=== PATIENT | female | born 1975 | race Caucasian/White ===

== ENCOUNTER 2022-08-28 07:12 | Day surgery (SDC) | payer OTHER, SELFPAY ==
[2022-08-23 08:46] VITALS: BMI 34.8
--- NOTE | 2022-08-27 10:29 | HO.ANESPROP2 ---
Documented by User: Karuna Majano NP 08/27/22 10:30 HPI - Anesthesia Eval Consult details Narrative: 47yo F for Colonoscopy PMFSH Past Medical History Medical History (Updated 08/23/22 @ 08:39 by Michaela Lyman RN) Elevated cholesterol Seasonal allergies Surgical History Surgical History (Updated 08/23/22 @ 08:39 by Michaela Lyman RN) History of back surgery Hx of section Hx of colonoscopy Social History Social History Patient Tobacco Use Status: Never used Tobacco Use of substances other than those prescribed or required for medical reasons: No Are you DNR?: No Advance Directives: No Advance Directives Information Provided: Yes Meds Allergies Allergy/AdvReac Type Severity Reaction Status Date / Time gluten Allergy Unknown Verified 08/23/22 08:39 Home Medications Medication Instructions Recorded Confirmed Last Taken Type Probiotic 08/23/22 Unknown History digestive enzymes 1 cap PO DAILY 08/23/22 08/23/22 Unknown History fexofenadine 180 mg tablet 180 mg PO DAILY 08/23/22 08/23/22 Unknown History (Madie Allergy) fiber 1 tab PO 08/23/22 Unknown History mometasone 50 mcg/actuation nasal 2 spray intranasal DAILY 08/23/22 08/23/22 Unknown History spray Exam Exam Date and Time: August 27, 2022 1029 Height,Weight and Vital Signs: Height 5 ft 6 in Weight 97.976 kg Assessment and Plan Assessment Anesthesia Assessment: Chart Reviewed Documented by User: Juan Aguilar MD 08/28/22 10:47 PMFSH Past Medical History Medical History (Updated 08/23/22 @ 08:39 by Michaela Lyman RN) Elevated cholesterol Seasonal allergies Family History Family history of problems with anesthesia: No Surgical History Surgical History (Updated 08/23/22 @ 08:39 by Michaela Lyman RN) History of back surgery Hx of section Hx of colonoscopy History of Problems with Anesthesia: No Social History Social History Patient Tobacco Use Status: Never used Tobacco Use of substances other than those prescribed or required for medical reasons: No Are you DNR?: No Advance Directives: No Advance Directives Information Provided: Yes Meds Allergies Allergy/AdvReac Type Severity Reaction Status Date / Time gluten Allergy Unknown Verified 08/23/22 08:39 Home Medications Medication Instructions Recorded Confirmed Last Taken Type Probiotic 08/23/22 Unknown History digestive enzymes 1 cap PO DAILY 08/23/22 08/23/22 Unknown History fexofenadine 180 mg tablet 180 mg PO DAILY 08/23/22 08/23/22 Unknown History (Madie Allergy) fiber 1 tab PO 08/23/22 Unknown History mometasone 50 mcg/actuation nasal 2 spray intranasal DAILY 08/23/22 08/23/22 Unknown History spray Exam Airway Mallampati Class: II TM Dist: >3cm Neck ROM: Full Loose/Missing/Broken Teeth: Yes Assessment and Plan Assessment Anesthesia Assessment: Anesthesia Plan Discussed Final Anesthetic Review Family History of Problems with Anesthesia: No History of Problems with Anesthesia: No NPO: Yes ASA Class: II Final Preanesthetic Review: No Changes in Pt Med Stat, Meds/Allgs Chart Reviewed, Consent Obtained/Reviewed and Anes Risks/Benef Reviewed Patient Risk: Low Procedure Risk: Low Anesthetic Plan Anesthetic Plan: MAC: Disposition: Standard PACU
[2022-08-28 07:24] VITALS: BMI 33.9
[2022-08-28 07:32] LABS: UPreg QC Valid YES; Urine Pregnancy NEGATIVE (NEGATIVE)
[2022-08-28 07:38] VITALS: BP 121/66; PULSE 89; RESP 16; TEMP 36.8; O2SAT 98
[2022-08-28] MEDS: Lactated Ringers 1,000 ML 100 ML IVCONT (07:46)
--- NOTE | 2022-08-28 08:28 | MHC.SHP ---
Pre-Procedural Eval Section A Date of Service: 08/28/22 The patient is an INPATIENT: No Changes since office visit: No Cold of Flu in the past 2 weeks, No New Medical Problems, No Changes in Medication and No Patient answered all questions The History & Physical has been completed within 30 days and I have reviewed it.: Yes Section B Chief Complaint: screening Allergies: Allergies Allergy/AdvReac Type Severity Reaction Status Date / Time gluten Allergy Unknown Verified 08/23/22 08:39 Plan I have reviewed the history and physical and performed a pertinent physical examination on my patient. No changes have occurred unless specified.
--- NOTE | 2022-08-28 08:58 | P.BOP_ITS ---
Brief Operative Note Date of Service: 08/28/22 Pre-op diagnosis: screening Post-op diagnosis: same Procedure: colonoscopy Surgeon: Jose Marx Anesthesia: MAC Was an Laboratory Apparatus Glass Blower used for this Procedure?: No Estimated blood loss (mL): 2 Pathology: other Condition: stable Disposition: PACU
[2022-08-28 09:00] VITALS: BP 109/60; PULSE 75; RESP 16; TEMP 36.1; O2SAT 98
[2022-08-28 09:15] VITALS: BP 117/60; PULSE 79; RESP 16; TEMP 36.1; O2SAT 99
--- NOTE | 2022-08-28 09:28 | OP_ITS ---
SURGEON: Jose Marx MD INDICATIONS: Prior history of adenomatous colon polyps. PREOPERATIVE DIAGNOSIS: POSTOPERATIVE DIAGNOSIS: PROCEDURE PERFORMED: Colonoscopy to the terminal ileum with biopsy and snare polypectomy. ESTIMATED BLOOD LOSS: COMPLICATIONS: ANESTHESIA: Monitored anesthesia care. ASSISTANTS: SPECIMENS: DESCRIPTION OF PROCEDURE: The procedure was performed on 08/28/2022. History and physical performed. The risks and benefits of the procedure were explained to the patient. Informed consent was obtained. The patient was placed in the left lateral decubitus position. A digital rectal exam was performed and was found to be normal. The Olympus pediatric video colonoscope was introduced into the rectum and advanced to the cecum without difficulty. The cecum was identified by transillumination, palpation, and identification of the ileocecal valve, examination was performed, and the scope was removed. She tolerated the procedure well and was taken to recovery area in stable condition. FINDINGS: The terminal ileum was normal. The visualized colonic mucosa was normal. There was a moderate amount of liquid stool and some chunks of solid material, which limited the sensitivity examination for detection of small polyps, this was washed and suctioned as best possible. Four polyps were identified. All were less than 10 mm, 2 were removed with biopsy forceps measuring approximately 3 mm. These were located in the cecum and right colon. A third polyp at the distal transverse colon was removed with a cold snare. It measured approximately 6 mm. The 4th polyp located at 60 cm was removed with a hot snare. This measured approximately 8 mm. No other polyps were identified. Retroflexed examination showed internal hemorrhoids that were moderate in size. IMPRESSION: Colon polyps. RECOMMENDATION: Follow up the biopsy results. MD UMA Salter/JONAHL / [id number]
== END 2022-08-28 09:41 | disposition home or self-care (01) ==
PROVIDERS: Nurse Practitioner; PCP Nurse Practitioner Family; Visit Provider Internal Medicine Gastroenterology
PROC: 0DJD8ZZ Inspection of Lower Intestinal Tract, Via Natural or Artificial Opening Endoscopic (ICD-10-PCS; CPT 45378; principal; 2022-08-28 08:10)
DX: Z12.11 Encounter for screening for malignant neoplasm of colon (principal); Z86.010 Personal history of colon polyps; D12.0 Benign neoplasm of cecum; D12.2 Benign neoplasm of ascending colon; K63.5 Polyp of colon; K64.8 Other hemorrhoids; K58.9 Irritable bowel syndrome, unspecified; E78.00 Pure hypercholesterolemia, unspecified; J30.2 Other seasonal allergic rhinitis; Z79.899 Other long term (current) drug therapy
CPT/HCPCS: 45385; 45380; 81025; 88305

== ENCOUNTER 2025-03-10 13:40 | Observation (INO) | payer BC, SELFPAY ==
--- NOTE | ~2025-03-10 | CT_ITS ---
CLINICAL HISTORY: RLQ abd pain, question appy CT ABDOMEN AND PELVIS WITH CONTRAST Comparison: None Findings: Mild atelectasis in the bilateral lower lobes. No consolidation or pleural effusion. The gallbladder and solid organs are within normal limits. No renal stones. No AAA. No lymphadenopathy. No bowel obstruction, pneumoperitoneum, or pneumatosis. No ascites. No significant mesenteric or paracolic edema. Moderate colonic stool burden. Small fat containing umbilical hernia. The appendix is elongated measuring 6-7 mm with mild adjacent fat stranding. No free or loculated fluid collection. CT appearance of the uterus and ovaries unremarkable. Urinary bladder unremarkable. No acute fracture. Moderately severe disc space narrowing with endplate osteophytes at L5-S1. Combined with a suspected disc herniation and facet arthrosis results in at least moderate spinal stenosis. IMPRESSION: 1. Findings are suggestive of mild/early acute appendicitis. No perforation or abscess. 2. Otherwise, no obstructive or acute inflammatory changes in the gastrointestinal and genitourinary tracts. 3. No urolithiasis. This document has been electronically signed by: Janee Barker DO on 03/10/2025 17:39:05
[2025-03-10 13:44] VITALS: BP 150/81; PULSE 84; RESP 18; TEMP 36.9; O2SAT 98; BMI 35.3
--- NOTE | 2025-03-10 13:44 | ED_ITS ---
HPI - General Adult General Chief complaint: Abdominal Pain Stated complaint: right side abd pain was sent from Time Seen by Provider: 03/10/25 16:12 Source: patient Mode of arrival: ambulatory Limitations: no limitations History of Present Illness ED Provider: Brad Rivero DO HPI narrative: 50-year-old female with no significant past medical or surgical history presents to the ED for 2 days of right lower quadrant abdominal pain that does not radiate and is described as sharp. The 1st episode occurred yesterday in the late morning, resolved, was not worsened with eating and the 2nd episode started earlier today and has been constant, worse with movement such as jumping up and down. She denies severe nausea, vomiting, diarrhea, constipation, fevers or chills. She has no abdominal surgeries in the past. She has never experienced this pain before. Related Data Home Medications ?Medication ?Instructions ?Recorded ?Confirmed Probiotic 08/23/22 digestive enzymes 1 cap PO DAILY 08/23/22 08/23/22 fexofenadine 180 mg tablet 180 mg PO DAILY 08/23/22 08/23/22 (Madie Allergy) fiber 1 tab PO 08/23/22 mometasone 50 mcg/actuation nasal 2 spray intranasal DAILY 08/23/22 08/23/22 spray Allergies Allergy/AdvReac Type Severity Reaction Status Date / Time gluten Allergy Unknown Verified 03/10/25 13:44 Review of Systems 2 Review of Systems: Yes all other systems are reviewed and are negative [facility] Past Medical History Medical History (Updated 03/10/25 @ 18:08 by Brad Rivero DO) Seasonal allergies Elevated cholesterol Surgical History (Updated 08/23/22 @ 08:39 by Michaela Lyman RN) History of back surgery Hx of section Hx of colonoscopy Social History Social History Patient Tobacco Use Status: Never used Tobacco Advance Directives: No Advance Directives Information Provided: Yes Physical Exam ED Vital Signs: Vital Signs - 24 hr 03/10/25 13:44 03/10/25 16:00 Temperature 98.4 F 97.8 F Pulse Rate 84 87 Respiratory Rate 18 18 Blood Pressure 150/81 H 146/81 H Pulse Oximetry 98 98 Oxygen Delivery Method Room Air Room Air BMI result Body Mass Index 35.3 Constitutional: ?Alert, oriented, speaking in full sentences HEENT: ?Normocephalic, atraumatic. ?Moist mucous membranes Eyes: ?PERRL, EOMI Neck: ?Supple, nontender Chest: ?No chest wall tenderness Respiratory: ?Lungs clear to auscultation, no increased work of breathing Cardio: ?Regular rate and rhythm, no murmur GI: ?Soft, nondistended, right lower quadrant tenderness with positive McBurney's point tenderness. No Rovsing sign. Back: ?Normal range of motion, nontender Skin: ?No rash, no lesions Neuro: ?Alert and oriented to person, place and time, moves all 4 extremities, no focal deficits Extremities: ?No swelling or tenderness, full range of motion Psych: ?Calm, alert and cooperative, appropriate behavior Course Course Course Narrative: RME, this is a rapid medical exam performed by Jarvis Spangler please refer to primary provider for complete H&P- 50-year-old female presents for evaluation of a 2 day history of right lower abdominal pain. She was sent here from urgent care for rule out appendicitis due to right lower quadrant tenderness on exam. She was not by urine dipstick and she had leukocytes in the urine but no urinary symptoms. Plan for labs. Will defer advanced imaging until the patient gets a room Medications Administered Discontinued Medications Generic Name Dose Route Start Last Admin Trade Name Freq PRN Reason Stop Dose Admin Iohexol 100 ml 03/10/25 16:57 03/10/25 16:57 Iohexol 350 Mg/Ml 100 Ml Infus..Btl IV 03/10/25 16:58 100 ml ONCE ONE Administration Ketorolac Tromethamine 15 mg 03/10/25 16:43 03/10/25 17:09 Ketorolac Tromethamine 15 Mg/Ml Vial IVPUSH 03/10/25 16:44 15 mg ONCE ONE Administration Ondansetron HCl 4 mg 03/10/25 16:43 03/10/25 17:09 Ondansetron Hcl 4 Mg/2 Ml Vial IVPUSH 03/10/25 16:44 4 mg ONCE ONE Administration Medical Decision Making Medical Decision Making MDM Narrative: 50-year-old female presenting with right lower quadrant abdominal pain. Signs and symptoms not consistent with ovarian torsion. Labs show no leukocytosis, equivocal urinalysis with the patient does not have any urinary symptoms consistent with cystitis. There is high suspicion for appendicitis which was ruled out with CT imaging. The patient was provided ketorolac and ondansetron for pain and nausea with some improvement. She does not want opiate therapy at this time. Case discussed with general surgeon who will evaluate and admit the patient. Started the patient on IV Zosyn. Lab Data 03/10/25 14:05 03/10/25 14:05 Labs: Lab Results 03/10/25 Range/Units 14:05 WBC 7.6 (4.8-10.8) X10*3/uL RBC 4.73 (4.20-5.50) X10*6/uL Hgb 13.4 (12.0-16.0) g/dl Hct 40.8 (37.0-47.0) % MCV 86.3 (80.0-98.0) fL MCH 28.3 (27.0-33.0) pg MCHC 32.8 (31.0-35.0) g/dl RDW 13.6 (11.0-16.0) % Plt Count 346 (160-400) X10*3/uL MPV 9.3 L (9.4-12.3) fL Immature Gran % (Auto) 0.8 H (0.0-0.4) % Neut % (Auto) 61.3 (45-73) % Lymph % (Auto) 26.9 (20-40) % Bell % (Auto) 6.7 (2-11) % Eos % (Auto) 3.8 (0-4) % Baso % (Auto) 0.5 (0-2) % Lymph # (Auto) 2.0 (1.2-4.9) X10*3/uL Bell # (Auto) 0.5 (0.1-1.2) X10*3/uL Eos # (Auto) 0.3 (0.0-0.4) X10*3/uL Baso # (Auto) 0.0 (0.0-0.2) X10*3/uL Abs Immat Gran (auto) 0.06 H (0.00-0.03) X10*3/uL Absolute Neuts (auto) 4.6 (2.0-8.3) x10*3/uL Absolute Nucleated RBC 0.000 (0.0-0.012) X10*3/uL Nucleated RBC % (auto) 0.0 (0.0-0.2) /100WBC Sodium 139 (135-145) mmol/L Potassium 3.9 (3.3-5.1) mmol/L Chloride 109 H (96-108) mmol/L Carbon Dioxide 25 (22-29) mmol/L Anion Gap 9 L (12-20) BUN 12 (9-16) mg/dL Creatinine 0.70 (0.5-1.4) mg/dL Estim Creat Clear Calc 114.2 Estimated GFR > 60 Random Glucose 98 (60-115) mg/dL Calcium 9.5 (8.4-10.2) mg/dL Total Bilirubin 0.7 (0.0-1.0) mg/dL AST 19 (5-31) U/L ALT 17 (0-31) U/L Alkaline Phosphatase 85 (39-117) U/L Total Protein 7.8 (6.5-8.0) g/dL Albumin 4.3 (3.5-5.0) g/dL Lipase 70 (8-78) U/L Beta HCG, Quant < 2 mIU/mL Urine Color Yellow Urine Appearance Clear Urine pH 5.5 (5.0-9.0) Ur Specific [place] 1.010 (1.005-1.025) Urine Protein Negative (Neg-Trace) mg/dL Urine Glucose (UA) Negative (Negative) mg/dL Urine Ketones Negative (Negative) mg/dL Urine Blood Trace H (Negative) Urine Nitrite Negative (Negative) Ur Leukocyte Esterase Small (1+) H (Negative) Urine RBC 3-5 H (0-2) /HPF Urine WBC 6-10 H (0-5) /HPF Ur Squamous Epith Cells 6-10 (0-2) /HPF Urine Bacteria Trace (None Seen) Hyaline Casts 0-2 (0-2) /LPF Discharge Plan Discharge Clinical Impression: Acute appendicitis Patient Disposition: Admitted As Inpatient Prescriptions: No Action digestive enzymes Capsule 1 cap PO DAILY Rx Instructions: administer with food; swallow whole; do not crush/chew/dissolve/break/cut fexofenadine [Madie Allergy] 180 mg Tablet 180 mg PO DAILY mometasone [Nasonex] 50 mcg/actuation [place],Non-Aerosol 2 spray INTRANASAL DAILY Rx Instructions: administer into each nostril Fiber Choice Tablet,Chewable 1 tab PO Probiotic Print Language: Tongan
[2025-03-10 14:13] LABS: MANUAL DIFF FLAG NO
[2025-03-10 14:15] LABS: Appearance Urine Clear; Color Urine Yellow; Glucose Urine UA Negative (Negative); Leukocyte Esterase Urine Small (1+) (Negative); Nitrite Urine Negative (Negative); PH 5.5 (5.0-9.0); UMIC TRIGGER UACC YES; Urine Blood Trace (Negative); Urine Ketones Negative (Negative); Urine Protein Negative (Neg-Trace)
[2025-03-10 14:18] LABS: Bacteria Urine Trace (None Seen); Basophils Percent Auto 0.5 % (0-2); Eosinophils Absolute Auto 0.3 X10*3/uL (0.0-0.4); Eosinophils Percent Auto 3.8 % (0-4); Hematocrit 40.8 % (37.0-47.0); Hemoglobin 13.4 g/dl (12.0-16.0); Hyaline Casts Urine 0-2 /LPF (0-2); Imm Gran Abs Auto 0.06 X10*3/uL (0.00-0.03); Imm Gran Pct Auto 0.8 % (0.0-0.4); Lymphocytes Percent Auto 26.9 % (20-40); Mean Corpuscular HGB Conc 32.8 g/dl (31.0-35.0); Mean Corpuscular Hemoglobin 28.3 pg (27.0-33.0); Mean Corpuscular Volume 86.3 fL (80.0-98.0); Mean Platelet Volume 9.3 fL (9.4-12.3); Monocytes Absolute Auto 0.5 X10*3/uL (0.1-1.2); Monocytes Percent Auto 6.7 % (2-11); Neutrophils Absolute Auto 4.6 x10*3/uL (2.0-8.3); Neutrophils Percent Auto 61.3 % (45-73); Platelet Count 346 X10*3/uL (160-400); Red Blood Count 4.73 X10*6/uL (4.20-5.50); Red Cell Distribution Width 13.6 % (11.0-16.0); UACC Culture Trigger YES; White Blood Count 7.6 X10*3/uL (4.8-10.8)
[2025-03-10 14:31] LABS: Alanine Aminotransferase 17 U/L (0-31); Albumin Level 4.3 g/dL (3.5-5.0); Alkaline Phosphatase 85 U/L (39-117); Anion Gap 9 (12-20); Aspartate Amino Transferase 19 U/L (5-31); Bilirubin Total 0.7 mg/dL (0.0-1.0); Blood Urea Nitrogen 12 mg/dL (9-16); Calcium 9.5 mg/dL (8.4-10.2); Carbon Dioxide 25 mmol/L (22-29); Chloride 109 mmol/L (96-108); Creatinine Clr Calc Pharmacy 114.2; Estimated Glomerular Filt Rate > 60; Glucose Random 98 mg/dL (60-115); Lipase 70 U/L (8-78); Potassium 3.9 mmol/L (3.3-5.1); Sodium 139 mmol/L (135-145); Total Protein 7.8 g/dL (6.5-8.0)
[2025-03-10 14:36] LABS: HCG Quantitative < 2 mIU/mL
[2025-03-10 16:00] VITALS: BP 146/81; PULSE 87; RESP 18; TEMP 36.6; O2SAT 98
[2025-03-10] MEDS: iohexoL 350 MG/ML 100 ML INFUS..BTL IV (16:57)
[2025-03-10] MEDS: Ketorolac Tromethamine 15 MG/ML VIAL IVPUSH (17:09)
[2025-03-10] MEDS: ondansetron HCL 4 MG/2 ML VIAL IVPUSH (17:09)
--- OUTSIDE RECORDS SUMMARY | 2025-03-10 17:28 | XMS_ITS | Data Portability ---
Author Organization [facility], [address] Address [address] [place] [address] Assessment No assessment recorded. Plan of Treatment Reminders Order Date Submit Date Provider Last Modified By Organization Details Last Modified Time Details Appointments None recorded. Lab urinalysis, dipstick 2023 024 [email or web address] 20999_[facility], [address] [place] [address], [id number], 4 09:42:41 O&P (ova & parasites), stool 2023 024 [facility] [address] [place], [address], 4 14:06:17 gastrointes tinal pathogens panel, culture, stool 2023 024 [facility] [address] [place], [address], 4 10:06:58 C diff toxin A+B, qual IA, stool 2023 024 [facility] [address] [place], [address], 4 18:05:58 Referral None recorded. Procedures None recorded. Surgeries None recorded. Imaging None recorded. Medication Orders None recorded. Patient TargetsNo targets recorded. Patient Instructions Encounter Date Encounter Id Patient Instructions Last Modified By Organization Details Last Modified Time 05/31/2024 [id number] diarrhea: care instructions [email or web address] Not available 05/31/2024 09:42:34 specimen collection & handling* [email or web address] Not available 05/31/2024 12:01:52 Take 1 OTC Immodium after each loose bowel movement. No more than 4 tablets a day. Not available 05/31/2024 08:44:51 Reason for Referral None Reported. Results Created Date Observation Date Name Description Value Unit Range Abnormal Flag Note LastModifiedBy Organization Detail LastModifiedTime 02/29/20 24 06/01/2024 NO SPECI MEN RECEI VIRIGNIA no specimen received TNP Test not perfo rmed. No stool speci men recei [place]. Not Available [facility] ([facility]) [address] [place], [address], 06/01/2024 18:05:43 02/29/20 24 06/02/2024 C DIFFI CILE TOXIN S A+B, EIA C difficile toxins A+B, EIA TNP Test not perfo rmed. No stool speci men recei [place]. Not Available [facility] ([facility]) [address] [place], [address], 06/02/2024 18:05:58 02/29/20 24 06/02/[address] PROBL EM request problem TNP Test not perfo rmed. No stool speci men recei [place]. TEST: [id number] C diffi cile Toxin s A+B, EIA Not Available [facility] ([facility]) [address] [place], [address], 06/02/2024 18:05:58 02/29/20 24 06/03/2024 STOOL CULTU RE E coli shiga toxin EIA NEGATI VE negati ve Not Available [facility] ([facility]) [address] [place], [address], 06/05/2024 08:05:50 02/29/20 24 06/04/2024 STOOL CULTU RE salmonella/s higella screen FINAL REPORT Not Available [facility] ([facility]) [address] [place], [address], 06/05/2024 08:05:50 02/29/20 24 06/04/2024 STOOL CULTU RE result 1 COMMEN T No Salmo moira or Shige lla recov ered. Not Available [facility] ([facility]) [address] [facility], [place], [address], 06/05/2024 08:05:50 02/29/20 24 06/05/2024 STOOL CULTU RE campylobacte r culture FINAL REPORT Not Available [facility] ([facility]) [address] [facility], [place], [address], 06/05/2024 08:05:50 02/29/20 24 06/05/2024 STOOL CULTU RE result 1 COMMEN T No Campy lobac ter speci es isola alexia. Not Available [facility] ([facility]) [address] [facility], [place], [address], 06/05/2024 08:05:50 02/29/20 24 06/05/2024 OVA + VENKATA ITE EXAM ova + parasite exam FINAL REPORT These resul ts were obtai montserrat using wet prepa ratio n(s) and trich huong stain ed smear . This test does not inclu de testi ng for Crypt ospor idium parvu m, Cyclo spora , or Micro spori davey. Not Available [facility] ([facility]) [address] [facility], [place], [address], 06/05/2024 14:06:17 02/29/20 24 06/05/2024 OVA + VENKATA ITE EXAM result 1 COMMEN T No ova, cysts , or venkata ites seen. One negat ilene speci men does not rule out the possi bilit y of a venkata itic infec tion. Not Available [facility] ([facility]) [address] [place], [address], 06/05/2024 14:06:17 05/31/20 24 05/31/2024 speci men colle ction & handl ing* Completed? Succes sfully Not Available jil palacios [address] [place], [address], 05/31/2024 09:42:19 05/31/20 24 05/31/2024 urina lysis , dipst ick Unknown Analyte Normal = light yellow Not Available [facility] [address] [place], [address], 05/31/2024 08:54:18 05/31/20 24 05/31/2024 urina lysis , dipst ick Unknown Analyte Normal = clear Not Available [facility] [address] [place], [address], 05/31/2024 08:54:18 05/31/20 24 05/31/2024 urina lysis , dipst ick Unknown Analyte Normal = negati ve Not Available [facility] [address] [place], [address], 05/31/2024 08:54:18 05/31/2005/31/2024 urina lysis , dipst ick Unknown Analyte Normal = Negati ve Not Available [facility] [address] [place], [address], 05/31/2024 08:54:18 05/31/2005/31/2024 urina lysis , dipst ick Unknown Analyte Normal = Negati ve Not Available [facility] [address] [place], [address], 05/31/2024 08:54:18 05/31/20 24 05/31/2024 urina lysis , dipst ick Unknown Analyte Normal = 1.010, 1.015, 1.020 Not Available [facility] [address] [place], [address], 05/31/2024 08:54:18 05/31/20 24 05/31/2024 urina lysis , dipst ick Unknown Analyte Normal = Negati ve Not Available [address]il [address] [place], [address], 05/31/2024 08:54:18 05/31/20 24 05/31/2024 urina lysis , dipst ick Unknown Analyte Normal = 6.5, 7.0, 7.5, 8.0 Not Available [facility] [address], [address], 05/31/2024 08:54:18 05/31/20 24 05/31/2024 urina lysis , dipst ick Unknown Analyte Normal = Negati ve Not Available [facility] [address] [place], [address], 05/31/2024 08:54:18 05/31/20 24 05/31/2024 urina lysis , dipst ick Unknown Analyte Normal = 0.2, 1.0 Not Available [facility] [address] [place], [address], 05/31/2024 08:54:18 05/31/20 24 05/31/2024 urina lysis , dipst ick Unknown Analyte Normal = Negati ve Not Available [facility] [address] [place], [address], 05/31/2024 08:54:18 05/31/20 24 05/31/2024 urina lysis , dipst ick Unknown Analyte Normal = Negati ve Not Available [facility] [address] [place], [address], 05/31/2024 08:54:18 05/31/20 24 05/31/2024 urina lysis , dipst ick Unknown Analyte Light Yellow Not Available [facility] [address] [place], [address], 05/31/2024 08:54:18 05/31/20 24 05/31/2024 urina lysis , dipst ick Unknown Analyte Slight ly Cloudy Not Available [facility] [address] [place], [address], 05/31/2024 08:54:18 05/31/20 24 05/31/2024 urina lysis , dipst ick Unknown Analyte Negati ve Not Available [facility] [address] [place], [address], 05/31/2024 08:54:18 05/31/20 24 05/31/2024 urina lysis , dipst ick Unknown Analyte Negati ve Not Available [facility] [address] [place], [address], 05/31/2024 08:54:18 05/31/20 24 05/31/2024 urina lysis , dipst ick Unknown Analyte Negati ve Not Available [facility] [address] [place], [address], 05/31/2024 08:54:18 05/31/20 24 05/31/2024 urina lysis , dipst ick Unknown Analyte 1.010 Not Available [place] [place], [address], 05/31/2024 08:54:18 05/31/20 24 05/31/2024 urina lysis , dipst ick Unknown Analyte Modera te Not Available jil palacios [address] [place], [address], 05/31/2024 08:54:18 05/31/20 24 05/31/2024 urina lysis , dipst ick Unknown Analyte 6.0 Not Available _ dereck [address] [place], [address], 05/31/2024 08:54:18 05/31/20 24 05/31/2024 urina lysis , dipst ick Unknown Analyte Negati ve Not Available _jil pal[facility] [address] [place], [address], 05/31/2024 08:54:18 05/31/20 24 05/31/2024 urina lysis , dipst ick Unknown Analyte 0.2 E.U./d L Not Available _jil [facility] [address] [place], [address], 05/31/2024 08:54:18 05/31/20 24 05/31/2024 urina lysis , dipst ick Unknown Analyte Negati ve Not Available _[facility]il [address] [place], [address], 05/31/2024 08:54:18 05/31/20 24 05/31/2024 urina lysis , dipst ick Unknown Analyte Negati ve Not Available jil [address] [place], [address], 05/31/2024 08:54:18 Result Notes None recorded. Problems Name Problem SNOMED Code Status Onset Date Resolution Date Notes Provider Name and Address Organization Details Recorded Time Decreased thickness 71684144 Active 2023 pre diabvetic ; diarrhea x 8 days Elo Bricault null, [place] - [facility] 4 08:52:02 Allergic rhinitis 82839505 Active 2023 Elo Bricault null, [place] - [facility] 08:51:30 Problem Notes None recorded. Medical Equipment None Reported. Allergies No known drug allergies Medications Name Sig Start Date Stop Date Status Note LastModified by Organization Details LastModified Time celecoxib 200 mg capsule 05/31 completed Not Available Not Available Not Available azithromycin 250 mg tablet 05/31 completed Not Available Not Available Not Available minoxidil 2.5 mg tablet active Not Available Not Available No t Available clindamycin 1 % topical gel 05/31 completed Not Available Not Available Not Available prednisone 50 mg tablet 05/31 completed Not Available Not Available Not Available Zyrtec 10 mg capsule Take by oral route. active Not Available Not Available No t Available Vitals Date Recorded Body height Body mass index (BMI) Body weight Pain severity - 0-10 verbal numeric rating [Score] - Reported Respiratory rate Body temperature Oxygen saturation Oxygen saturation in Arterial blood by Pulse oximetry Heart rate Systolic blood pressure Diastolic blood pressure Provider Name and Address Organization Details Last Updated DateTime 167.64 cm 33.9 kg/m2 46927.4 g 3 17 /min 97.5 [degF] 99 % 99 % 85 /min 137 mm[Hg] 84 mm[Hg] Elo Vieira [facility] 08:56:31 Social History Question Answer Notes LastModified by [employer] ion Details LastModified Time Tobacco Smoking Status Never Smoker Elo gilmore [facility] 05/31/2024 08:52:57 What Is Your Level Of Alcohol Consumption? Occasional Information not available 05/31/2024 How Many Times Per Week Do You Consume Alcohol? Less Than 1 Time Per Week Information not available 05/31/2024 Are You Currently Employed? Yes Information not available 05/31/2024 Have You Had A Flu Shot This Season? Yes Information not available 05/31/2024 If No, Would You Like A Flu Shot Today? No Information not available 05/31/2024 Have You Had Direct Contact, Or Contact During Intimacy, With Monkeypox Rash, Scabs, Or Body Fluids From A Person With Monkeypox? No Information not available 05/31/2024 Do You Use Any Illicit Or Recreational Drugs? No Information not available 05/31/2024 Have You Recently Traveled Abroad? No Information not available 05/31/2024 Are You Currently In School? No Information not available 05/31/2024 Do You Or Have You Ever Used Any Other Forms Of Tobacco Or Nicotine? No Information not available 05/31/2024 Sex: Unknown Functional Status None recorded. Mental Status None recorded. Family History Relationship Description Onset Age of this Age Resolved Age Notes LastModified by Organization Details LastModified Time Father No current problems or disability Not available 05/04 08:52:04 Mother No current problems or disability Not available 05/04 08:52:04 Medical History No medical history recorded. Gynecological History Statement/Question Response Date of LMP 05/24/2024 Is there any chance of ? No LMP Approximate Obstetrics History GPAL:G 0 P 0 0 0 0 Past Encounters Encounter ID Performer Location Encounter Start Date Encounter Closed Date Diagnosis/Indication Diagnosis SNOMED-CT Code Diagnosis ICD10 Code Diagnosis Note [id number] [address] [place] [address] 01/20/2021 10:40:36 01/20/2021 11:53:24 [id number] GIANNI Smith [address] [place] [address] 05/31/2024 08:22:53 05/31/2024 09:56:05 Diarrhea 21952900 R19.7 Health Concerns Section Related Observation LastModified by Organization Detai ls LastModified Time None Recorded Concern Status LastModified by Organization Details LastModified Time None Recorded Advance Directives Directive None Recorded Payers Encounter Date Sequence Insurance Name Policy Number Policy Bradley Covered Member ID Bradley Member ID Guarantor Name 01/20/[address] [place] [address] [id number] Mary Byrd [id number] Mary Byrd 05/31/2024 1 [facility] [place] [place] [id number] Mary Byrd [id number] Mary Byrd Notes Date Note Type Note Provider Name and Address Organization Details Recorded Time 05/31/20 24 text/htm l Diarrhea UCReported bypatient.source of patient informationInformation obtained from patient; Patient arrived at Urgent Care ambulatory Quality:frequent;watery;lo ose; multiple times per day including middle of the night Severity:moderate Duration:present for 1 week (8 days total now) Onset/Timin-3 times a day;worse with meals;nocturnal diarrhea Context:no one else with similar symptoms; no recent camping; no recent picnic; no possible food sources; no recent antibiotics (30 days); no recent travel Aggravating Factors:eating Associated Symptoms:abdominal pain;blood in stool(mild bright red blood) GIANNI Kellogg [address] [place], [place] [address]Esteban Garciatobrooks [place], [address], [place] - [facility] 05/31/2024 09:51:07 OBGyn Episode No OBEpisode recorded.
[2025-03-10] MEDS: Dextrose 5 % and Lactated Ring 1,000 ML 125 ML IVCONT (18:25)
[2025-03-10] MEDS: Piperacillin Sodium/Tazobactam 3.375 GM in 0.9 % Sodium Chloride 50 ML IV (18:25)
--- NOTE | 2025-03-10 19:12 | PC.NURSE ---
Patient complains of RLQ pain 02/08, patient ,medicated with Tylenol IV per JAN.
[2025-03-10] MEDS: Acetaminophen 1,000 MG/100 ML PIGGYBACK 400 MG IV (19:13)
[2025-03-10 20:47] VITALS: BMI 36.3
[2025-03-10 20:49] VITALS: BP 148/76; PULSE 88; RESP 18; TEMP 36.2; O2SAT 97
--- NOTE | 2025-03-10 21:05 | PHA.MEDREC ---
Pharmacy Consult ? Medication Reconciliation Pharmacy has completed the medication reconciliation. Spoke to patient to confirm medication list. Last dose of medication was today 03/10/25.
[2025-03-11] VITALS (10 sets, daily range): BP systolic 109–141; BP diastolic 57–83; PULSE 78–91; RESP 12–18; TEMP 36.1–36.7; O2SAT 93–98
[2025-03-11] MEDS: Zolpidem Tartrate 5 MG TABLET PO (00:09)
[2025-03-11] MEDS: Piperacillin Sodium/Tazobactam 3.375 GM in 0.9 % Sodium Chloride 50 ML IV ×3 (00:15→12:28)
[2025-03-11] MEDS: Dextrose 5 % and Lactated Ring 1,000 ML 125 ML IVCONT ×2 (03:05→11:34)
[2025-03-11 06:30] LABS: MANUAL DIFF FLAG NO
[2025-03-11 06:33] LABS: Basophils Absolute Auto 0.1 X10*3/uL (0.0-0.2); Basophils Percent Auto 1.1 % (0-2); Eosinophils Absolute Auto 0.3 X10*3/uL (0.0-0.4); Eosinophils Percent Auto 5.6 % (0-4); Hematocrit 37.6 % (37.0-47.0); Hemoglobin 12.4 g/dl (12.0-16.0); Imm Gran Abs Auto 0.04 X10*3/uL (0.00-0.03); Imm Gran Pct Auto 0.7 % (0.0-0.4); Lymphocytes Absolute Auto 1.7 X10*3/uL (1.2-4.9); Lymphocytes Percent Auto 31.8 % (20-40); Mean Corpuscular Hemoglobin 28.9 pg (27.0-33.0); Mean Corpuscular Volume 87.6 fL (80.0-98.0); Mean Platelet Volume 9.6 fL (9.4-12.3); Monocytes Absolute Auto 0.5 X10*3/uL (0.1-1.2); Monocytes Percent Auto 8.4 % (2-11); Neutrophils Absolute Auto 2.8 x10*3/uL (2.0-8.3); Neutrophils Percent Auto 52.4 % (45-73); Platelet Count 269 X10*3/uL (160-400); Red Blood Count 4.29 X10*6/uL (4.20-5.50); Red Cell Distribution Width 13.8 % (11.0-16.0); White Blood Count 5.4 X10*3/uL (4.8-10.8)
[2025-03-11] MEDS: 0.9 % Sodium Chloride Flush 3 ML SYRINGE IVFLUSH ×2 (07:24→20:21)
[2025-03-11] MEDS: ondansetron HCL 4 MG/2 ML VIAL IVPUSH ×2 (07:28→14:28)
--- NOTE | 2025-03-11 08:05 | P.HPGS_ITS ---
History of Present Illness History of Present Illness Date of Service: 03/11/25 Chief complaint: Early acute appendicitis Narrative: Mary Byrd is a 50 year old female presenting with complaints of abdominal pain in the right lower quadrant which began 1 day prior to admission. She denies a previous history of similar pain. The pain was approximately 3-4 in severity but increased to 6 with motion. She denies fever/chills, nausea/vomiting, diarrhea or constipation. The pain began to increase in severity therefore she presented to the emergency department for further evaluation. Workup in the emergency department revealed a normal WBC however CT abdomen and pelvis revealed inflammatory changes around the appendix with no fluid collections or air to indicate perforation. Findings were felt to be consistent with early appendicitis. This morning she continues to have abdominal pain in the right lower quadrant and pain with motion. Review of Systems Review of Systems: Yes all other systems are reviewed and are negative Gastrointestinal: Gastrointestinal: Reports abdominal pain, Denies constipation, Denies diarrhea, Denies nausea and Denies vomiting PMFSH Past Medical History Medical History (Updated 03/11/25 @ 08:08 by Gavin Pereyra MD) Seasonal allergies Elevated cholesterol Surgical History Surgical History (Updated 08/23/22 @ 08:39 by Michaela Lyman RN) History of back surgery Hx of section Hx of colonoscopy Social History Social History Patient Tobacco Use Status: Never used Tobacco Advance Directives: No Advance Directives Information Provided: Yes Meds Allergies Allergy/AdvReac Type Severity Reaction Status Date / Time gluten Allergy Unknown Verified 03/10/25 20:57 Active Medications: Current Medications Hydromorphone HCl (Hydromorphone Hcl 0.5 Mg/0.5 Ml Syringe) 0.5 mg IVPUSH Q3H PRN; Protocol PRN Reason: Pain, Severe (Pain Scale 7-10) Acetaminophen (Ofirmev) 1,000 mg in 100 mls @ 400 mls/hr IV Q6H PRN PRN Reason: Pain, Mild (Pain Scale 1-3) Last Infusion: 03/10/25 19:30 Dose: Infused Dextrose/Lactated Ringer's (D5lr) 1,000 mls @ 125 mls/hr IVCONT .Q8H RETA Last Admin: 03/11/25 03:05 Dose: 125 mls/hr Piperacillin Sod/Tazobactam (Sod 3.375 gm/ Sodium Chloride) 50 mls @ 100 mls/hr IV Q6H [facility] Last Infusion: 03/11/25 07:25 Dose: Infused Magnesium Hydroxide (Milk Of Magnesia 30 Ml Oral.Susp) 30 ml PO DAILY PRN PRN Reason: Constipation Ondansetron HCl (Ondansetron Hcl 4 Mg/2 Ml Vial) 4 mg IVPUSH QID PRN PRN Reason: Nausea Last Admin: 03/11/25 07:28 Dose: 4 mg Oxycodone HCl (Oxycodone Hcl Immed Release 5 Mg Tablet) 5 mg PO Q6H PRN PRN Reason: Pain, Moderate(Pain Scale 4-6) Sodium Chloride (0.9 % Sodium Chloride Flush 3 Ml Syringe) 3 ml IVFLUSH QSHIFT [facility] Last Admin: 03/11/25 07:24 Dose: 3 ml Zolpidem Tartrate (Zolpidem Tartrate 5 Mg Tablet) 5 mg PO BEDTIME PRN PRN Reason: Insomnia Last Admin: 03/11/25 00:09 Dose: 5 mg Home Medications ?Medication ?Instructions ?Recorded ?Confirmed ?Last Taken ?Type mometasone 50 mcg/actuation nasal 2 spray intranasal DAILY PRN 08/23/22 03/10/25 Unknown History spray Allergy Symptoms cetirizine 10 mg tablet (Zyrtec) 10 mg PO DAILY 03/10/25 03/10/25 03/10/25 History minoxidil 2.5 mg tablet 2.5 mg PO DAILY 03/10/25 03/10/25 03/10/25 History Physical Exam Vital Signs: Vital Signs: Last Vital Signs Temp 96.9 F 03/11/25 07:49 Pulse 78 03/11/25 07:49 Resp 18 03/11/25 07:49 BP 123/76 03/11/25 07:49 Pulse Ox 93 03/11/25 07:49 O2 Del Method Room Air 03/11/25 07:49 BMI result Body Mass Index 36.3 Const: General: cooperative and no acute distress Nutritional Appearance: well nourished Orientation/consciousness: patient oriented x3 Limitations: no limitations HEENT: Head: Yes normocephalic and Yes atraumatic Ears: hearing grossly normal bilaterally Resp: Effort & Inspection: normal respiratory effort, no audible wheezes, no cough and no respiratory distress Cardio: Jugular venous distension: no JVD GI: Inspection: Yes normal to inspection Palpation (GI): Soft to palpation, Tenderness to palpation present (GI) in the RUQ and at McBurney's point, no guarding, not rigid and No hepatosplenomegaly present Percussion: Yes normal to percussion Auscultation: normal bowel sounds Rectal Exam - Female: deferred Skin: Other: Warm, dry, no rash Neuro: General: patient oriented x3 Extrem: General: Yes no clubbing, cyanosis or edema Results Results Labs: Short CBC 03/10/25 03/11/25 Range/Units 14:05 06:10 WBC 7.6 5.4 (4.8-10.8) X10*3/uL Hgb 13.4 12.4 (12.0-16.0) g/dl Hct 40.8 37.6 (37.0-47.0) % Plt Count 346 269 (160-400) X10*3/uL BMP 03/10/25 14:05 Sodium 139 Potassium 3.9 Chloride 109 H Carbon Dioxide 25 BUN 12 Creatinine 0.70 Calcium 9.5 Liver Function 03/10/25 Range/Units 14:05 Total Bilirubin 0.7 (0.0-1.0) mg/dL AST 19 (5-31) U/L ALT 17 (0-31) U/L Alkaline Phosphatase 85 (39-117) U/L Albumin 4.3 (3.5-5.0) g/dL Urine 03/10/25 Range/Units 14:05 Urine Color Yellow Urine Appearance Clear Urine pH 5.5 (5.0-9.0) Ur Specific [place] 1.010 (1.005-1.025) Urine Protein Negative (Neg-Trace) mg/dL Urine Glucose (UA) Negative (Negative) mg/dL Abdomen CT scan report/results: image reviewed CT scan - pelvis: image reviewed Assessment and Plan (1) Acute appendicitis: Qualifiers: Acute appendicitis type: with localized peritonitis Appendicitis gangrene presence: without gangrene Appendicitis perforation presence: without perforation Appendicitis abscess presence: without abscess Qualified Code(s): K35.30 - Acute appendicitis with localized peritonitis, without perforation or gangrene Status: Acute Plan 50-year-old female patient with a 24 hour history of abdominal pain mainly in the right lower quadrant without any associated symptoms found on workup to have a normal WBC but CT findings suggestive of early appendicitis. This morning she continues to have abdominal pain in the right lower quadrant and pain with motion. On examination she has tenderness in the right lower quadrant over McBurney's point suggestive of acute appendicitis. We discussed the options of continued antibiotics verses laparoscopic appendectomy. After a review of the p rocedure, risks, and alternatives, she consents to a laparoscopic or possible open appendectomy. She has been added onto the operative schedule for later today. Quality Stroke Does the patient have a stroke diagnosis?: No VTE Prior VTE?: No VTE Risk Level:: Surgical - low VTE Device Contraindication: N/A - Device Ordered VTE Drug Contraindication: Treatment Not Indicated Procedures Date of Service Date of Service: 03/11/25
[2025-03-11] MEDS: Acetaminophen 1,000 MG/100 ML PIGGYBACK 400 MG IV ×2 (08:24→17:00)
--- NOTE | 2025-03-11 12:23 | MHC.SHP ---
Pre-Procedural Eval Section A - 24 Hr Update-Section A only Date of Service: 03/11/25 The patient is an INPATIENT: Yes Changes since office visit: No Cold of Flu in the past 2 weeks, No New Medical Problems, No Changes in Medication and No Patient answered all questions Section B - Complete if H&P > 30 days Chief Complaint: Early acute appendicitis Allergies: Allergies Allergy/AdvReac Type Severity Reaction Status Date / Time gluten Allergy Intermediate Gastrointestinal Verified 03/11/25 11:59 Upset Review of Systems Sugical H&P ROS: Negative: Constitution, Cardiovascular, Respiratory, Neurological, Psychiatric, Hem-Onc, Allergic/Immunologic, Gastrointestinal, Genitourinary, Musculoskeletal, Integumentary, Endocrine and Eyes/Ears/Nose/Throat Exam Surgical H&P Exam: Normal: HEENT, Normal: Heart, Normal: Lungs, Normal: Extremities, Normal: Abdomen, Normal: Skin and Normal: Neurological Plan I have reviewed the history and physical and performed a pertinent physical examination on my patient. No changes have occurred unless specified. Time Spent With Patient Time: Total time managing care of this patient today ____ minutes.
--- NOTE | 2025-03-11 12:31 | HO.ANESPROP2 ---
HPI - Anesthesia Eval Consult details Narrative: 50 yo F admitted with acute appendicitis PMFSH Active Problems Active Problems: All Active Problems Acute appendicitis (Acute) Past Medical History Medical History (Updated 03/11/25 @ 08:08 by Gavin Pereyra MD) Seasonal allergies Elevated cholesterol Family History Family history of problems with anesthesia: No Surgical History Surgical History History of back surgery Hx of section Hx of colonoscopy History of Problems with Anesthesia: No Social History Social History Are you a primary palliative care nurse practitioner to a significant other at home: No Do you presently have visiting nurse or other home services: No Patient Tobacco Use Status: Never used Tobacco Use of substances other than those prescribed or required for medical reasons: Yes Substance Use Type Other:: RARE, edible Have you been hit, kicked, punched, or otherwise hurt by someone within the past year? If so, by whom?: No Are you DNR?: No Advance Directives: No Advance Directives Information Provided: No Advance Directives on File: No Patient : No : No Poor oral hygiene: No Meds Allergies Allergy/AdvReac Type Severity Reaction Status Date / Time gluten Allergy Intermediate Gastrointestinal Verified 03/11/25 11:59 Upset Active Medications: Current Medications Hydromorphone HCl (Hydromorphone Hcl 0.5 Mg/0.5 Ml Syringe) 0.5 mg IVPUSH Q3H PRN; Protocol PRN Reason: Pain, Severe (Pain Scale 7-10) Acetaminophen (Ofirmev) 1,000 mg in 100 mls @ 400 mls/hr IV Q6H PRN PRN Reason: Pain, Mild (Pain Scale 1-3) Last Infusion: 03/11/25 09:10 Dose: Infused Dextrose/Lactated Ringer's (D5lr) 1,000 mls @ 125 mls/hr IVCONT .Q8H RETA Last Admin: 03/11/25 11:34 Dose: 125 mls/hr Piperacillin Sod/Tazobactam (Sod 3.375 gm/ Sodium Chloride) 50 mls @ 100 mls/hr IV Q6H RETA Last Admin: 03/11/25 12:28 Dose: 100 mls/hr Magnesium Hydroxide (Milk Of Magnesia 30 Ml Oral.Susp) 30 ml PO DAILY PRN PRN Reason: Constipation Ondansetron HCl (Ondansetron Hcl 4 Mg/2 Ml Vial) 4 mg IVPUSH QID PRN PRN Reason: Nausea Last Admin: 03/11/25 07:28 Dose: 4 mg Oxycodone HCl (Oxycodone Hcl Immed Release 5 Mg Tablet) 5 mg PO Q6H PRN PRN Reason: Pain, Moderate(Pain Scale 4-6) Sodium Chloride (0.9 % Sodium Chloride Flush 3 Ml Syringe) 3 ml IVFLUSH QSHIFT RETA Last Admin: 03/11/25 07:24 Dose: 3 ml Zolpidem Tartrate (Zolpidem Tartrate 5 Mg Tablet) 5 mg PO BEDTIME PRN PRN Reason: Insomnia Last Admin: 03/11/25 00:09 Dose: 5 mg Home Medications ?Medication ?Instructions ?Recorded ?Confirmed ?Last Taken ?Type mometasone 50 mcg/actuation nasal 2 spray intranasal DAILY PRN 08/23/22 03/10/25 Unknown History spray Allergy Symptoms cetirizine 10 mg tablet (Zyrtec) 10 mg PO DAILY 03/10/25 03/10/25 03/10/25 History minoxidil 2.5 mg tablet 2.5 mg PO DAILY 03/10/25 03/10/25 03/10/25 History Exam Exam Date and Time: 03/11/25 1220 Height,Weight and Vital Signs: Height 5 ft 6 in Weight 101.9 kg Last Vital Signs Temp 98.1 F 03/11/25 11:59 Pulse 82 03/11/25 11:59 Resp 16 03/11/25 11:59 BP 141/83 H 03/11/25 11:59 Pulse Ox 96 03/11/25 11:59 O2 Del Method Room Air 03/11/25 11:59 Pertinent Lab Results Pertinent Lab Results: Laboratory Tests 03/10/25 03/11/25 14:05 06:10 WBC 7.6 5.4 RBC 4.73 4.29 Hgb 13.4 12.4 Hct 40.8 37.6 MCV 86.3 87.6 MCH 28.3 28.9 MCHC 32.8 33.0 RDW 13.6 13.8 Plt Count 346 269 MPV 9.3 L 9.6 Immature Gran % (Auto) 0.8 H 0.7 H Neut % (Auto) 61.3 52.4 Lymph % (Auto) 26.9 31.8 [place] % (Auto) 6.7 8.4 Eos % (Auto) 3.8 5.6 H Baso % (Auto) 0.5 1.1 Lymph # (Auto) 2.0 1.7 [place] # (Auto) 0.5 0.5 Eos # (Auto) 0.3 0.3 Baso # (Auto) 0.0 0.1 Abs Immat Gran (auto) 0.06 H 0.04 H Absolute Neuts (auto) 4.6 2.8 Absolute Nucleated RBC 0.000 0.000 Nucleated RBC % (auto) 0.0 0.0 Sodium 139 Potassium 3.9 Chloride 109 H Carbon Dioxide 25 Anion Gap 9 L BUN 12 Creatinine 0.70 Estim Creat Clear Calc 114.2 Estimated GFR > 60 Random Glucose 98 Calcium 9.5 Total Bilirubin 0.7 AST 19 ALT 17 Alkaline Phosphatase 85 Total Protein 7.8 Albumin 4.3 Lipase 70 Beta HCG, Quant < 2 Urine Color Yellow Urine Appearance Clear Urine pH 5.5 Ur Specific [place] 1.010 Urine Protein Negative Urine Glucose (UA) Negative Urine Ketones Negative Urine Blood Trace H Urine Nitrite Negative Ur Leukocyte Esterase Small (1+) H Urine RBC 3-5 H Urine WBC 6-10 H Ur Squamous Epith Cells 6-10 Urine Bacteria Trace Hyaline Casts 0-2 Airway Mallampati Class: III TM Dist: <=3cm Neck ROM: Full Loose/Missing/Broken Teeth: No (patient denies any loose or broken teeth) Heart: S1S2 Lungs: CTAB Assessment and Plan Assessment Anesthesia Assessment: Anesthesia Plan Discussed and Chart Reviewed Final Anesthetic Review Family History of Problems with Anesthesia: No History of Problems with Anesthesia: No NPO: Yes ASA Class: II Final Preanesthetic Review: No Changes in Pt Med Stat, Meds/Allgs Chart Reviewed, Consent Obtained/Reviewed and Anes Risks/Benef Reviewed Patient Risk: Low Procedure Risk: Intermediate Anesthetic Plan Anesthetic Plan: GA and Agree w/ Assess. and Plan Disposition: Standard PACU
--- NOTE | 2025-03-11 12:45 | MHC.CM.PN ---
Attempted to complete CM assessment, patient off unit.
--- NOTE | 2025-03-11 13:30 | W.PM.OPN ---
Operative Note Operative Note Date of Service: 03/11/25 Narrative: Preoperative diagnosis: [] Early acute appendicitis Postop diagnosis: [] The same Procedure [] laparoscopic appendectomy Surgeon: [] [facility] Consultant: [] Taylor Type of Anesthesia: [] General Indication for surgery: [] Mildly injected/inflamed appendix. No gross evidence of perforation. Undescended cecum. No other gross intra-abdominal pathology demonstrated. Findings: [] Patient brought to the operating room, placed on operative table supine position, after an adequate level of general anesthesia was induced, the patient's abdomen which was moderately corpulent was prepped and draped in usual sterile fashion. Using a supraumbilical curvilinear incision, Ford technique was used to insufflate abdominal cavity to 15 mm of CO2. Lower midline and suprapubic ports were placed under direct laparoscopic view, the patient placed in Trendelenburg position, tilted to the left. Findings were as noted above. Appendix was identified and grasped brought onto the field. It is mesentery was sequentially taken down using double firing of ligature device. Appendix was then transected at the cecal base using endoscopic JUVENCIO stapler. Specimen was placed in an Endo-Catch bag, a retrieved through the umbilical port. Proximal appendix was from the main appendix but both specimens were retrieved and sent to pathology. Abdominal cavity was copiously irrigated, secured hemostasis, and closed in the following manner; all ports removed under direct laparoscopic view. Umbilical port has fascia reapproximated using interrupted 0 Vicryl suture. Skin wounds were closed in subcuticular 4-0 Vicryl sutures followed by Steri-Strips and sterile dressings. Wounds were infiltrated 0.5% Marcaine/1% lidocaine at completion. Sponge, needle, and instrument counts reported correct. Patient tolerated the procedure well and emerged from anesthesia stable condition. EBL minimal
--- NOTE | 2025-03-11 16:20 | MHC.CM.PN ---
Patient lives at home w/ and children. Functionally independent. Denies use of DME or service. PCP: Moraima Verdin CNP Reports she has an HCP listing her , Raj Byrd, as HCA. Copy requested. DP: Home self care, family transport. CM will continue to follow.
[2025-03-11] MEDS: oxyCODONE HCl Immed Release 5 MG TABLET PO (17:02)
--- NOTE | 2025-03-11 18:24 | PC.NURSE ---
Pt ambulated to BR, voided without difficulty. DTV #[id number]
[2025-03-11] MEDS: Morphine Sulfate 4 MG/ML CARTRIDGE IVPUSH (20:21)
[2025-03-12] MEDS: Dextrose 5 % and Lactated Ring 1,000 ML 125 ML IVCONT (00:09)
[2025-03-12] MEDS: Milk of Magnesia 30 ML ORAL.SUSP PO (05:39)
[2025-03-12] MEDS: Acetaminophen 1,000 MG/100 ML PIGGYBACK 400 MG IV (05:40)
[2025-03-12 05:52] VITALS: BP 132/69; PULSE 76; RESP 18; TEMP 36.3; O2SAT 96
--- NOTE | 2025-03-12 06:50 | PM.PNGS ---
Subjective Subjective Date of Service: 03/12/25 <Bertha Darin - Last Filed: 03/12/25 07:01> 03/12/25 <Eliana Vazquez PA-C - Last Filed: 03/12/25 10:27> 03/12/25 <Omid Wright MD - Last Filed: 03/12/25 10:58> Interval history: Non eventful night, patient reports mild nausea, minimal abdominal pain and tolerating clear liquids with not much of an appetite. <Bertha Darin - Last Filed: 03/12/25 07:01> Physical Exam Vital Signs: Vital Signs: Last Vital Signs Temp 97.4 F 03/12/25 05:52 Pulse 76 03/12/25 05:52 Resp 18 03/12/25 05:52 BP 132/69 03/12/25 05:52 Pulse Ox 96 03/12/25 05:52 O2 Del Method Room Air 03/12/25 05:52 O2 Flow Rate 2 03/11/25 14:51 BMI result Body Mass Index 36.3 <Bluemate AssociatesDarin - Last Filed: 03/12/25 07:01> Const: General: alert and awake <[facility] - Last Filed: 03/12/25 07:01> Orientation/consciousness: patient oriented x3 <[facility]arin - Last Filed: 03/12/25 07:01> Resp: Effort & Inspection: normal respiratory effort and able to speak in complete sentences <[facility] - Last Filed: 03/12/25 07:01> Cardio: Rate: regular rate <Bertha Darin - Last Filed: 03/12/25 07:01> Rhythm: regular rhythm <Bertha Darin - Last Filed: 03/12/25 07:01> Peripheral pulses: radial pulses present <[facility] Associates[facility]arin - Last Filed: 03/12/25 07:01> GI: Other: Dressing in place over incision, no drainage present Mild tenderness to palpation Abdomen soft <Bertha Darin - Last Filed: 03/12/25 07:01> Skin: General skin exam: no rashes or lesions noted <Eliana Vazquez PA-C - Last Filed: 03/12/25 10:27> Neuro: General: patient oriented x3 <Bertha Webster - Last Filed: 03/12/25 07:01> Objective Data Active Medications Acetaminophen (Ofirmev) 1,000 mg in 100 mls @ 400 mls/hr IV Q6H PRN PRN Reason: Pain, Mild (Pain Scale 1-3) Last Infusion: 03/12/25 06:02 Dose: Infused Documented By: LUZ Dextrose/Lactated Ringer's (D5lr) 1,000 mls @ 125 mls/hr IVCONT .Q8H [facility] Last Infusion: 03/12/25 06:32 Dose: 125 mls/hr Documented By: LUZ Loratadine (Loratadine 10 Mg Tablet) 10 mg PO DAILY RETA Magnesium Hydroxide (Milk Of Magnesia 30 Ml Oral.Susp) 30 ml PO DAILY PRN PRN Reason: Constipation Last Admin: 03/12/25 05:39 Dose: 30 ml Documented By: LUZ Minoxidil (Minoxidil 2.5 Mg Tablet) 2.5 mg PO DAILY [facility] Morphine Sulfate (Morphine Sulfate 4 Mg/Ml Cartridge) 4 mg IVPUSH Q4H PRN; Protocol PRN Reason: Pain, Severe (Pain Scale 7-10) Last Admin: 03/11/25 20:21 Dose: 4 mg Documented By: LUZ Ondansetron HCl (Ondansetron Hcl 4 Mg/2 Ml Vial) 4 mg IVPUSH QID PRN PRN Reason: Nausea Last Admin: 03/11/25 14:28 Dose: 4 mg Documented By: FLOR Oxycodone HCl (Oxycodone Hcl Immed Release 5 Mg Tablet) 5 mg PO Q6H PRN PRN Reason: Pain, Moderate(Pain Scale 4-6) Last Admin: 03/11/25 17:02 Dose: 5 mg Documented By: LINCOLN Sodium Chloride (0.9 % Sodium Chloride Flush 3 Ml Syringe) [facility] Last Admin: 03/11/25 20:21 Dose: 3 ml Documented By: LUZ Zolpidem Tartrate (Zolpidem Tartrate 5 Mg Tablet) 5 mg PO BEDTIME PRN PRN Reason: Insomnia Last Admin: 03/11/25 00:09 Dose: 5 mg Documented By: DAWIT <Bertha Darin - Last Filed: 03/12/25 07:01> Labs CBC & Chem 7: 03/11/25 06:10 03/10/25 14:05 <Bertha Darin - Last Filed: 03/12/25 07:01> Microbiology Microbiology Results: Microbiology 03/10/25 18:21 Blood Culture - Preliminary Blood - Venous No growth after 24 hours. 03/10/25 18:21 Blood Culture - Preliminary Blood - Venous No growth after 24 hours. 03/10/25 Unknown Urine Culture - Final Urine clean catch - Clean Catch Midstream <Bertha Darin - Last Filed: 03/12/25 07:01> Procedures Date of Service Date of Service: 03/12/25 <Bertha Darin - Last Filed: 03/12/25 07:01> 03/12/25 <Eliana Vazquez PA-C - Last Filed: 03/12/25 10:27> 03/12/25 <Omid Wright MD - Last Filed: 03/12/25 10:58> Progress Note: A&P Assessment and plan (1) Acute appendicitis: Status: Acute <Bertha Darin - Last Filed: 03/12/25 07:01> (2) S/P laparoscopic appendectomy: Status: Acute <Bertha Darin - Last Filed: 03/12/25 07:01> Assessment and Plan: Mary is POD #1 from laparoscopic appendectomy. She was able to ambulate to and from the bathroom by herself, reports urination and no bowel movement. Patient feels constipated and tried milk of magnesia. Minimal abdominal pain reported, mild nausea last night controlled with odansetron. Plan to advance her diet today, encouraged spirometry 10x per hour and ambulation as tolerated. Will discuss discharge plans today with medical clearance. <Bertha Darin - Last Filed: 03/12/25 07:01> Mary is POD #1 from laparoscopic appendectomy. She was able to ambulate to and from the bathroom by herself, reports urination and no bowel movement. Patient feels constipated and tried milk of magnesia. Minimal abdominal pain reported, mild nausea last night controlled with odansetron. Plan to advance her diet today, encouraged spirometry 10x per hour and ambulation as tolerated. Will discuss discharge plans today with medical clearance. Agree with above assessment and plan by Darin ROJAS. PAtient POD #1 s/p lap appy for uncomplicated appendicitis. Doing well post op, VSS. ABd exam benign with appropriate post op tenderness. Dressings clean and intact. Feels ready for discharge to home today. F/u in office in 1 week. Patient comfortable with plan. <Eliana Vazquez PA-C - Last Filed: 03/12/25 10:27> Time Spent With Patient Time: Total time managing care of this patient today ____ minutes. <Bertha Webster - Last Filed: 03/12/25 07:01> Quality Stroke Does the patient have a stroke diagnosis?: No <Bertha Webster - Last Filed: 03/12/25 07:01> VTE Prior VTE?: No <Bertha Webster - Last Filed: 03/12/25 07:01> VTE Risk Level:: Surgical - low <Bertha Webster - Last Filed: 03/12/25 07:01> VTE Device Contraindication: N/A - Device Ordered <Bertha Webster - Last Filed: 03/12/25 07:01> VTE Drug Contraindication: Treatment Not Indicated <Bertha Webster - Last Filed: 03/12/25 07:01>
[2025-03-12 07:36] VITALS: BP 123/66; PULSE 73; RESP 14; TEMP 36.2; O2SAT 93
--- NOTE | 2025-03-12 08:07 | HO.POSTANES ---
Post Anesthesia Evaluation Post Anesthesia Evaluation Date of Service: 03/12/25 Vital Signs: Vital Signs Temp Pulse Resp BP Pulse Ox O2 Del Method 03/12/25 07:36 97.2 F 73 14 123/66 93 Room Air 03/12/25 05:52 97.4 F 76 18 132/69 96 Room Air Anesthesia: General Endotracheal-GETA Mental Status: Awake Pain Control: Satisfactory Nausea/Vomiting: None Hydration: Adequate Anesthesia-Related Issues: No Anes. Related Issues
[2025-03-12] MEDS: minoxidiL 2.5 MG TABLET PO (08:12)
[2025-03-12 08:25] VITALS: BP 126/64; PULSE 78; RESP 14; TEMP 36.2; O2SAT 95
--- NOTE | 2025-03-12 08:46 | MHC.CM.PN ---
DP: PT HAS BEEN MEDICALLY CLEARED FOR DC HOME, NO SERVICES. PT HAS OWN RIDE HOME.
--- NOTE | 2025-03-12 10:27 | PM.DS ---
DS: Providers Provider Date of Service: 03/12/25 Date of admission: 03/10/25 17:55 Date of discharge: 03/12/25 Primary care physician: Opal Charles MD Attending physician on admission: Gavin Pereyra Attending physician on discharge: Omid Wright DS: Diagnosis Discharge Diagnosis (1) Acute appendicitis: Status: Acute (2) S/P laparoscopic appendectomy: Status: Acute DS: Summary Hospital Course Hospital Course: HPI AT ADMISSION: Mary Byrd is a 50 year old female presenting with complaints of abdominal pain in the right lower quadrant which began 1 day prior to admission. She denies a previous history of similar pain. The pain was approximately 3-4 in severity but increased to 6 with motion. She denies fever/chills, nausea/vomiting, diarrhea or constipation. The pain began to increase in severity therefore she presented to the emergency department for further evaluation. Workup in the emergency department revealed a normal WBC however CT abdomen and pelvis revealed inflammatory changes around the appendix with no fluid collections or air to indicate perforation. Findings were felt to be consistent with early appendicitis. This morning she continues to have abdominal pain in the right lower quadrant and pain with motion. HOSPITAL COURSE: The patient was admitted to the surgical service for further treatment of the acute appendicitis. She elected to proceed with laparoscopic appendectomy. She was added onto the OR schedule for that day. On 03/11/25, a laparoscopic appendectomy was performed by Dr. Wright without complication. The patient tolerated the procedure well. She had an uncomplicated recovery course. On POD #1, she felt well and was tolerating a solid diet without nausea or vomiting, had good pain control and was ambulating without difficulty. She was hemodynamically stable. Her abdomen was benign with appropriate post op tenderness and clean and intact dressings. She felt ready for discharge. She was discharged to home on 03/12/25 in stable condition. He is to follow up in the office in 1 week. Status at Discharge Functional status at discharge: independent ambulation Overall status at discharge: patient is progressing back to baseline Time Attestation Discharge Coordination Time (in mins): 30 Quality: Safe Use of Opioids Does Pt have an Active Cancer Diagnosis on the Problem List?: No Quality: Stroke Does the patient have a stroke diagnosis?: No Physical Exam Vital Signs: Vital Signs: Last Vital Signs Temp 97.2 F 03/12/25 08:25 Pulse 78 03/12/25 08:25 Resp 14 03/12/25 08:25 BP 126/64 03/12/25 08:25 Pulse Ox 95 03/12/25 08:25 O2 Del Method Room Air 03/12/25 08:25 O2 Flow Rate 2 03/11/25 14:51 BMI result Body Mass Index 36.3 Const: General: comfortable, no acute distress and alert Orientation/consciousness: patient oriented x3 Resp: Effort & Inspection: normal respiratory effort GI: Other: dressings clean and intact mild incisional tenderness Inspection: No distended Palpation (GI): Soft to palpation and no guarding Skin: General skin exam: no rashes or lesions noted Neuro: General: patient oriented x3 and moves all extremities DS: Data Data Completed and Pending Pending studies at discharge: Pending at discharge 03/11/25 13:17 Surgical [PTH] Routine Labs on day of discharge: Preliminary micro results at discharge 03/10/25 18:21 Blood Culture - Preliminary Blood - Venous No growth after 24 hours. 03/10/25 18:21 Blood Culture - Preliminary Blood - Venous No growth after 24 hours. Discharge Plan Discharge Anticipated Discharge Date/Time: 03/12/25 12:36 Patient Disposition: Home, Self-Care Discharge Diagnosis: s/p laparoscopic appendectomy Referrals: Opal Charles MD [Primary Care Provider] - 1 Week Omid Wright MD [Physician] - 1 Week Discharge Medications: New docusate sodium [Colace] 100 mg capsule 100 mg PO BID Qty: 30 0RF oxycodone 5 mg tablet 5 mg PO Q4H PRN (Reason: pain (scale score 7-10)) Qty: 24 0RF Rx Instructions: Partial Fill upon patient request. Continued mometasone 50 mcg/actuation [place],Non-Aerosol 2 spray INTRANASAL DAILY PRN (Reason: Allergy Symptoms) Rx Instructions: administer into each nostril cetirizine [Zyrtec] 10 mg Tablet 10 mg PO DAILY minoxidil 2.5 mg tablet 2.5 mg PO DAILY Discharge Orders: Discharge Order (Routine); Ordered 03/12/25 Ordered By: Eliana Vazquez Diet: Advance to usual diet Activity on Discharge: No heavy lifting Stand Alone Forms: Patient Portal Discharge page Print Language: Serbian Activity Restrictions/Additional Instructions: Apply an ice pack for short intervals (20 minutes on, followed by at least 20 minutes off) for the first 2 days. Do not apply heat. Do not use creams, lotions, or topical antibiotics. These can cause infection or allergic reaction. Ok to shower 48 hours after your surgery. Remove dressings in 2 days and replace as needed. You have steri strips (small white cloth strips) covering your incision- these will fall off ~1 week. Take Tylenol Extra-strength 1-2 tabs every 6 hours for the first day, then as needed. Oxycodone every 4-6 hours as needed for pain. Colace 100 mg twice a day as needed for constipation. Follow up in office with Dr. Wright in 1 week. ([phone]) No heavy lifting (>10lbs) or strenuous activity! Call Your Doctor If: -Your temperature exceeds 101.5? F -You experience excessive pain or swelling -You have an unexpected reaction to medication -You have excessive bleeding -You experience continued vomiting/nausea -Your incision begins to separate -Your incision shows signs of infection such as increased redness, swelling, excessive pain, drainage (light blood or clear fluid is normal) or heat Care Plan Goals: Return to baseline health and resume normal activities following recovery period. Health Concerns: acute appendicitis Plan of Treatment: s/p laparoscopic appendectomy f/u in office in 1 week Assessment: Doing well post op. Discharge Date/Time: 03/12/25 08:44
== END 2025-03-12 08:44 | disposition home or self-care (01) ==
LOC: HO.ED 18:08 → HO.EDOVER 18:16 → HO.S3 19:22
PROVIDERS: Physician Assistant; Admitting Provider Surgery; Emergency Provider Emergency Medicine; PCP Nurse Practitioner Family; Visit Provider Surgery
PROC: 0DTJ4ZZ Resection of Appendix, Percutaneous Endoscopic Approach (ICD-10-PCS; CPT 44970; principal; 2025-03-11 13:00)
DX: K35.80 Unspecified acute appendicitis (principal)
CPT/HCPCS: 44970; 36415; 74177; 80053; 81001; 83690; 84702; 85025; 87040; 87086; 88304; 96361; 96365; 96366; 96367; 96375; 96376; 99221; 99285; J0131; J1100; J1171; J1885; J2003; J2250; J2270; J2371; J2405; J2543; J2704; J2795; J3010; Q9967

== ENCOUNTER → 2025-03-10 16:45 | Outpatient (BNV) | payer BC, SELFPAY | PROVIDERS: Emergency Provider Emergency Medicine; PCP Internal Medicine Cardiovascular Disease; Visit Provider Radiology Diagnostic Radiology | DX: R10.31 Right lower quadrant pain (principal) | CPT/HCPCS: 74177 ==

== ENCOUNTER → 2025-03-10 17:55 | Outpatient (BNV) | payer BC, SELFPAY | PROVIDERS: Admitting Provider Surgery; Emergency Provider Emergency Medicine; PCP Internal Medicine Cardiovascular Disease; Visit Provider Surgery | DX: K35.30 Acute appendicitis with localized peritonitis, without perforation or gangrene (principal); Z90.49 Acquired absence of other specified parts of digestive tract | CPT/HCPCS: 44970; 99024; 99222 ==

== ENCOUNTER 2025-03-23 10:31 | Outpatient (AMB) | payer BC, SELFPAY ==
--- NOTE | 2025-03-23 10:39 | A.OFFVIS_ITS ---
Vital Signs 03/23/25 10:46 Height 5 ft 6 in Weight 219 lb BMI 35.3 BP 133/82 Blood Pressure Location Rt brachial Position Sitting Pulse 93 Intake Visit Reasons: s/p laparoscopic appendectomy Intake Note: Patient here s/p laparoscopic appendectomy. Reports incision healing well. Patient c/o: no concerns. Steri strips fell off. Only took Tylenol as needed. Surgery: 03-11-2025 Behavioral Health Director Required: No Accompanied by: Self / Same As Patient Allergies gluten Allergy (Intermediate, Verified 03/23/25 10:46) Gastrointestinal Upset HPI Comments Details: Patient was for follow-up. She has no incisional issues or complaints. She is starting a diet. She is having regular bowel. She is increasing her activity level. [facility] Medical History (Updated 03/20/25 @ 00:01 by Cristina Garcia) Seasonal allergies Elevated cholesterol Surgical History (Updated 03/23/25 @ 08:43 by ROMARIO Arredondo) S/P laparoscopic appendectomy (03/11/25) History of back surgery Hx of section Hx of colonoscopy Social History Are you a primary lawn care specialist to a significant other at home: No Do you presently have visiting nurse or other home services: No Patient Tobacco Use Status: Never used Tobacco service: No Physical Exam Vital Signs: Last Vital Signs Pulse 93 03/23/25 10:46 BP 133/82 03/23/25 10:46 BMI result Body Mass Index 35.3 GI Other: Abdomen is soft. All wounds clean dry and intact healing well Assessment & Plan Assessment & Plan (1) S/P laparoscopic appendectomy: Onset Date: 03/11/25 Comment: Dr. Kyle Anne Code(s): Z90.49 - Acquired absence of other specified parts of digestive tract Category: Medical Plan Patient was been given local instructions to recommenced work light duty for 4 weeks and will otherwise follow-up p.r.n.. All questions answered. Medications: Discontinued oxycodone Partial Fill upon patient request. Discontinued Reason: Patient no longer taking 5 mg PO Q4H PRN 24 tabs 0RF pain (scale score 7-10) Coding Level of Care Code Global (03712) Diagnoses S/P laparoscopic appendectomy Z90.49
[2025-03-23 10:46] VITALS: BP 133/82; PULSE 93; BMI 35.3
--- OUTSIDE RECORDS SUMMARY | 2025-03-23 12:17 | XMS_ITS | Patient Health Record ---
Author Organization [facility] Address [address] [place] [address] Care Team Providers Care Cargo Handler Name Role Phone RICHIE WARNER, ADONAY Primary Care Provider UnavailJose Contreras Jr Unavailable Allergies Allergen (clinical drug ingredient) Drug/Non Drug Allergy documented on EMR Reaction Allergy Type Onset Date Status Gluten Gluten Unknown Allergy Active seasonal (uncoded) Unknown Allergy A ctive Reason For Referral No Information Medications Medication SIG (Take, Route, Frequency, Duration) Notes Start Date End Date Status MiraLax (colon prep) 17 GM/SCOOP mixed with Gatorade or Crystal Light Orally begin at 5:00 p.m. the day before the procedure for 1 day 08/01/2022 Active Digestive Enzyme - as directed Orally Active Madie Allergy 180 MG 1 tablet Swallow whole with water; do not take with fruit juices. Orally Once a day for 30 day(s) Active Nasonex Active Probiotic Active Fiber Choice Fruity Bites Active Immunizations Vaccine Route Administration Date Status Comme nts Influenza Unknown 10/24/2021 Administered Problems Problem Type SNOMED Code ICD Code Onset Dates Problem Status W/U Status Risk Notes Problem 072815903 Colon cancer screening (Z12.11) Active confirmed Problem 70161348 Rectal bleeding (K62.5) Active confirmed Problem 811837325 Personal history of colonic polyps (Z86.010) Active confirmed Problem 136230762 Encounter for other preprocedural examination (Z01.818) Active confirmed Problem 203806594 Change in bowel habits (R19.4) Active confirmed Problem Diverticular disease of colon (020141465) Colon, diverticulosis (K57.30) Active confirmed Plan Of Treatment Future Test Test Name Order Date COLONOSCOPY 11/16/2016 COLONOSCOPY 08/01/2022 Insurance Providers Payer Name Payer Address Payer Phone Subscriber Number Group Number Insured Name Patient Relationship to Insured Coverage Start Date Coverage End Date [facility] [address] [facility] [place] [id number] [phone] [id number] WILLIAM HUMPHREY Self - patient is the insured Medical (General) History Medical History History ICD Code Elevated cholesterol Seasonal allergies Colonoscopy 04/17, tubular adenoma, five- year followup Surgical History Surgery Date(Month/Year) back surgery-herniated disc 10/2014 section x 2
--- OUTSIDE RECORDS SUMMARY | 2025-03-23 12:17 | XMS_ITS | Data Portability ---
Author Organization [facility] [address] Address [address] [place] [address] Assessment No assessment recorded. Plan of Treatment Reminders Order Date Submit Date Provider Last Modified By Organization Details Last Modified Time Details Appointments None recorded. Lab urinalysis, dipstick 2023 024 [email or web address][facility], [address] [place] [address], [address], 4 09:42:41 O&P (ova & parasites), stool 2023 024 [facility] [address] [place], [address], 4 14:06:17 gastrointes tinal pathogens panel, culture, stool 2023 024 [facility] [address] [place], [address], 4 10:06:58 C diff toxin A+B, qual IA, stool 2023 024 [facility] [address] [place], [address], 4 18:05:58 Referral None recorded. Procedures None recorded. Surgeries None recorded. Imaging None recorded. Medication Orders None recorded. Patient TargetsNo targets recorded. Patient Instructions Encounter Date Encounter Id Patient Instructions Last Modified By Organization Details Last Modified Time 05/31/2024 [id number] diarrhea: care instructions [email or web address] Not available 05/31/2024 09:42:34 specimen collection & handling* [email or web address] Not available 05/31/2024 12:01:52 Take 1 OTC Immodium after each loose bowel movement. No more than 4 tablets a day. Not available 05/31/2024 08:44:51 Reason for Referral None Reported. Results Created Date Observation Date Name Description Value Unit Range Abnormal Flag Note LastModifiedBy Organization Detail LastModifiedTime 02/29/20 24 06/01/2024 NO SPECI MEN RECEI [place] no specimen received TNP Test not perfo rmed. No stool speci men recei [place]. Not Available [facility] ([facility]) [address] [place], [address], 06/01/2024 18:05:43 02/29/20 24 06/02/2024 C DIFFI CILE TOXIN S A+B, EIA C difficile toxins A+B, EIA TNP Test not perfo rmed. No stool speci men recei [place]. Not Available [facility] ([facility]) [address] [place], [address], 06/02/2024 18:05:58 02/29/20 24 06/02/[address] PROBL EM request problem TNP Test not perfo rmed. No stool speci men recei [place]. TEST: [address]161 7 C diffi cile Toxin s A+B, EIA Not Available [facility] ([facility]) [address] [place], [address], 06/02/2024 18:05:58 02/29/20 24 06/03/2024 STOOL CULTU RE E coli shiga toxin EIA NEGATI VE negati ve Not Available [facility] ([facility]) [address] [place], [address], 06/05/2024 08:05:50 02/29/20 24 06/04/2024 STOOL CULTU RE salmonella/s higella screen FINAL REPORT Not Available [facility] ([facility]) [address] [place], [address], 06/05/2024 08:05:50 02/29/20 24 06/04/2024 STOOL CULTU RE result 1 COMMEN T No Salmo moira or Shige lla recov ered. Not Available [facility] ([facility]) [address] [facility], [place], [address], 06/05/2024 08:05:50 02/29/20 24 06/05/2024 STOOL CULTU RE campylobacte r culture FINAL REPORT Not Available [facility] ([facility]) [address] [facility], [place], [address], 06/05/2024 08:05:50 02/29/20 24 06/05/2024 STOOL CULTU RE result 1 COMMEN T No Campy lobac ter speci es isola alexia. Not Available [facility] ([facility]) [address] [facility], [place], [address], 06/05/2024 08:05:50 02/29/20 24 06/05/2024 OVA + VENKATA ITE EXAM ova + parasite exam FINAL REPORT These resul ts were obtai montserrat using wet prepa ratio n(s) and trich huong stain ed smear . This test does not inclu de testi ng for Crypt ospor idium parvu m, Cyclo spora , or Micro spori davey. Not Available [facility] ([facility]) [address] [facility], [place], [address], 06/05/2024 14:06:17 02/29/20 24 06/05/2024 OVA + VENKATA ITE EXAM result 1 COMMEN T No ova, cysts , or venkata ites seen. One negat ilene speci men does not rule out the possi bilit y of a venkata itic infec tion. Not Available [facility] ([facility]) [address] [place], [address], 06/05/2024 14:06:17 05/31/20 24 05/31/2024 speci men colle ction & handl ing* Completed? Succes sfully Not Available jil [facility]ios [address] [place], [address], 05/31/2024 09:42:19 05/31/20 24 05/31/2024 urina lysis , dipst ick Unknown Analyte Normal = light yellow Not Available [facility] [address] [place], [address], 05/31/2024 08:54:18 05/31/20 24 05/31/2024 urina lysis , dipst ick Unknown Analyte Normal = clear Not Available [facility] [address] [place], [address], 05/31/2024 08:54:18 05/31/20 24 05/31/2024 urina lysis , dipst ick Unknown Analyte Normal = negati ve Not Available [facility] [address] [place], [address], 05/31/2024 08:54:18 05/31/2005/31/2024 urina lysis , dipst ick Unknown Analyte Normal = Negati ve Not Available [facility] [address] [place], [address], 05/31/2024 08:54:18 05/31/2005/31/2024 urina lysis , dipst ick Unknown Analyte Normal = Negati ve Not Available [facility] [address] [place], [address], 05/31/2024 08:54:18 05/31/20 24 05/31/2024 urina lysis , dipst ick Unknown Analyte Normal = 1.010, 1.015, 1.020 Not Available [facility] [address] [place], [address], 05/31/2024 08:54:18 05/31/20 24 05/31/2024 urina lysis , dipst ick Unknown Analyte Normal = Negati ve Not Available jil [address] [place], [address], 05/31/2024 08:54:18 05/31/20 24 05/31/2024 urina lysis , dipst ick Unknown Analyte Normal = 6.5, 7.0, 7.5, 8.0 Not Available [facility] [address], [address], 05/31/2024 08:54:18 05/31/20 24 05/31/2024 urina lysis , dipst ick Unknown Analyte Normal = Negati ve Not Available [facility] [address] [place], [address], 05/31/2024 08:54:18 05/31/20 24 05/31/2024 urina lysis , dipst ick Unknown Analyte Normal = 0.2, 1.0 Not Available [facility] [address] [place], [address], 05/31/2024 08:54:18 05/31/20 24 05/31/2024 urina lysis , dipst ick Unknown Analyte Normal = Negati ve Not Available [facility] [address] [place], [address], 05/31/2024 08:54:18 05/31/20 24 05/31/2024 urina lysis , dipst ick Unknown Analyte Normal = Negati ve Not Available [facility] [address] [place], [address], 05/31/2024 08:54:18 05/31/20 24 05/31/2024 urina lysis , dipst ick Unknown Analyte Light Yellow Not Available [facility] [address] [place], [address], 05/31/2024 08:54:18 05/31/20 24 05/31/2024 urina lysis , dipst ick Unknown Analyte Slight ly Cloudy Not Available [facility] [address] [place], [address], 05/31/2024 08:54:18 05/31/20 24 05/31/2024 urina lysis , dipst ick Unknown Analyte Negati ve Not Available [facility] [address] [place], [address], 05/31/2024 08:54:18 05/31/20 24 05/31/2024 urina lysis , dipst ick Unknown Analyte Negati ve Not Available [facility] [address] [place], [address], 05/31/2024 08:54:18 05/31/20 24 05/31/2024 urina lysis , dipst ick Unknown Analyte Negati ve Not Available [facility] [address] [place], [address], 05/31/2024 08:54:18 05/31/20 24 05/31/2024 urina lysis , dipst ick Unknown Analyte 1.010 Not Available [place] [place], [address], 05/31/2024 08:54:18 05/31/20 24 05/31/2024 urina lysis , dipst ick Unknown Analyte Modera te Not Available jil palacios [address] [place], [address], 05/31/2024 08:54:18 05/31/20 24 05/31/2024 urina lysis , dipst ick Unknown Analyte 6.0 Not Available _ dereck [address] [place], [address], 05/31/2024 08:54:18 05/31/20 24 05/31/2024 urina lysis , dipst ick Unknown Analyte Negati ve Not Available _jil [facility] [address] [place], [address], 05/31/2024 08:54:18 05/31/20 24 05/31/2024 urina lysis , dipst ick Unknown Analyte 0.2 E.U./d L Not Available _jil palacios [address] [place], [address], 05/31/2024 08:54:18 05/31/20 24 05/31/2024 urina lysis , dipst ick Unknown Analyte Negati ve Not Available _[facility]il [address] [place], [address], 05/31/2024 08:54:18 05/31/20 24 05/31/2024 urina lysis , dipst ick Unknown Analyte Negati ve Not Available jil [facility]ac[facility] [address] [place], [address], 05/31/2024 08:54:18 Result Notes None recorded. Problems Name Problem SNOMED Code Status Onset Date Resolution Date Notes Provider Name and Address Organization Details Recorded Time Decreased thickness 81289287 Active 2023 pre diabvetic ; diarrhea x 8 days Elo Bricault null, PA - [facility] 4 08:52:02 Allergic rhinitis 77954773 Active 2023 Elo Bricault null, PA - [...] Last Updated DateTime 167.64 cm 33.9 kg/m2 24772.4 g 3 17 /min 97.5 [degF] 99 % 99 % 85 /min 137 mm[Hg] 84 mm[Hg] Elo Vieira Myxer 08:56:31 Social History Question Answer Notes LastModified by [email or web address] ion Details LastModified Time Tobacco Smoking Status Never Smoker Elo gilmore [facility] 05/31/2024 08:52:57 What Is Your Level [...] SNOMED-CT Code Diagnosis ICD10 Code Diagnosis Note 03586907 [address] [place] [address] 01/20/2021 10:40:36 01/20/2021 11:53:24 [id number] G[facility]NI Smith [address] [place] [address] 05/31/2024 08:22:53 05/31/2024 09:56:05 Diarrhea 75381989 R19.7 Health Concerns Section Related Observation LastModified by Organization Detai ls LastModified Time None Recorded Concern Status LastModified by Organization Details LastModified Time None Recorded Advance Directives Directive None Recorded Payers Encounter Date Sequence Insurance Name Policy Number Policy Bradley Covered Member ID Bradley Member ID Guarantor Name 01/20/[address] [place] [address] [id number] Mary Byrd [id number] Mary Byrd 05/31/2024 1 [facility] [id number] Mary Byrd [id number] Mary Byrd Notes Date Note Type Note [...] in stool(mild bright red blood) GIANNI Kellogg [address] [place], [place] [address]Esteban Garciatobrooks [place], [address], [place] - [facility] 05/31/2024 09:51:07 OBGyn Episode No OBEpisode recorded.
== END 2025-03-23 10:52 | disposition home or self-care (01) ==
LOC: HO.HGS 10:32
PROVIDERS: PCP Internal Medicine Cardiovascular Disease; Visit Provider Surgery
DX: Z90.49 Acquired absence of other specified parts of digestive tract (principal)
CPT/HCPCS: 99024

== ENCOUNTER → 2025-03-23 10:31 | Outpatient (BNVA) | payer BC, SELFPAY | PROVIDERS: PCP Internal Medicine Cardiovascular Disease; Visit Provider Surgery ==